=== PATIENT | male | born 1980 | race Caucasian/White ===

== ENCOUNTER 2019-07-01 10:43 | Emergency (ER) | payer OTHER ==
[2019-07-01 11:11] VITALS: BP 103/66
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
== END 2019-07-01 12:43 | disposition home or self-care (01) ==
LOC: UCCORT 10:43
DX: S43.402A Unspecified sprain of left shoulder joint, initial encounter (principal); F17.210 Nicotine dependence, cigarettes, uncomplicated; Z88.0 Allergy status to penicillin; V89.2XXA Person injured in unspecified motor-vehicle accident, traffic, initial encounter; Y92.9 Unspecified place or not applicable
CPT/HCPCS: 73050; 99202; G0463